=== PATIENT | male | born 1955 | race Caucasian/White ===

== ENCOUNTER 2017-02-08 14:12 | Inpatient (IN) | payer OTHER ==
--- NOTE | 2017-02-08 14:50 | Emergency Department Report ---
Entered by EDWIN MENDOZA, acting as scribe for MARISA SMALL NP. Chief Complaint: Neuro Symptoms/Deficit Stated Complaint: TINGLING LEFT HAND/FOOT/SIDE Time Seen by Provider: 02/08/17 14:25 - HPI History of Present Illness: 61 y/o male presents with tingling to the left foot, left hand and back that started 5 days ago. Pt notes Sx started after quitting smoking. Pt denies any pain. - ROS Review of Systems: +tingling left foot, left hand, back area -pain - Exam Vital Signs: Vital Signs 02/08/17 14:22 Temperature 98.4 F Pulse Rate 72 Respiratory 18 Rate Blood Pressure 142/91 O2 Sat by Pulse 99 Oximetry Physical Exam: Neuro: GGS 15, MAEW, no focal weakness MSE screening note: Focused history and physical exam performed. Due to findings the following was ordered: labs, ct ED Disposition for MSE Condition: Stable This documentation as recorded by the scribe,EDWIN MENDOZA,accurately reflects the service I personally performed and the decisions made by ,MARISA SMALL , CLERK SECRETARY.
[2017-02-08 15:06] LABS: Basophils % (Auto) 0.4 % (0.0-1.8); Eosinophils % (Auto) 0.6 % (0.0-4.3); Hematocrit 37.2 % (35.5-45.6); Hemoglobin 12.2 gm/dl (11.8-15.2); Mean Corpuscular HGB Conc 33 % (32-34); Mean Corpuscular Hemoglobin 29 pg (28-32); Mean Corpuscular Volume 89 fl (84-94); Platelet Count 291 K/mm3 (140-440); Red Blood Count 4.19 M/mm3 (3.65-5.03); Red Cell Distribution Width 12.6 % (13.2-15.2)
[2017-02-08 15:10] LABS: Alanine Aminotransferase 18 units/L (7-56); Albumin 4.4 g/dL (3.9-5); Albumin/Globulin Ratio 1.1 %; Alkaline Phosphatase 72 units/L (35-129); Anion Gap 19 mmol/L; BUN/Creatinine Ratio 28.57; Blood Urea Nitrogen 20 mg/dL (9-20); Calcium 9.5 mg/dL (8.4-10.2); Carbon Dioxide 24 mmol/L (22-30); Chloride 98.8 mmol/L (98-107); Glucose 107 mg/dL (75-100); Potassium 4.4 mmol/L (3.6-5.0); Sodium 137 mmol/L (137-145); Total Protein 8.3 g/dL (6.3-8.2)
[2017-02-08 15:15] LABS: INR 0.92 (0.87-1.13)
[2017-02-08 15:16] LABS: Partial Thromboplastin Time 27.1 Sec. (24.2-36.6)
--- NOTE | 2017-02-08 15:36 | Cat Scan Report ---
CT HEAD WITHOUT CONTRAST INDICATION: Numbness to left side of body for a couple of days. COMPARISON: None similar at this institution. FINDINGS: Noncontrast head CT demonstrates normal ventricles and age-appropriate sulci without acute or recent infarct, hemorrhage, mass effect or midline shift. Mild periventricular hypodensities and few white matter small vessel ischemic disease, including approximately 1 cm lacunar infarct on the left, image 28, series 2. No abnormal extra-axial fluid collections. Posterior fossa structures and basilar cisterns appear within normal limits. Symmetric eye globes. Clear paranasal sinuses and mastoid air cells. Intact calvarium. Normal overlying scalp soft tissues. Few missing teeth. Cervical spondylosis. CONCLUSION: No acute intracranial CT abnormality, as described. Thank you for the opportunity to participate in this patient's care.
[2017-02-08] MEDS ORDERED: ASPIRIN PO ONE (23:30)
--- NOTE | 2017-02-08 23:34 | Emergency Department Report ---
HPI - General Chief Complaint: Neuro Symptoms/Deficit Time Seen by Provider: 02/08/17 14:25 - HPI HPI: Room 5 The patient is a 61-year-old male presenting with a chief complaint of left- sided numbness. The patient states his symptoms began 4 days ago with tingling in his left hand and left foot numbness from the left axilla down his left leg. Patient also complains of feeling as though there is a tightness in his left thigh. Patient denied weakness, dysarthria, dysphasia or chest pain. The patient states outside of the numbness and tingling he has no other complaints. Location: [see above] Duration: 4 days Quality:, Tingling Severity: Moderate Modifying factors: [see above] Context: [see above] Mode of transportation: [not driving] ED Past Medical Hx - Past Medical History Previous Medical History?: No - Surgical History Past Surgical History?: No - Family History Family history: no significant - Social History Smoking Status: Former Smoker Substance Use Type: None (denies illicit drug use), Alcohol, Other ED Review of Systems ROS: Stated complaint: TINGLING LEFT HAND/FOOT/SIDE Other details as noted in HPI Comment: All other systems reviewed and negative Constitutional: denies: chills, fever Eyes: denies: eye pain, eye discharge, vision change ENT: denies: ear pain, throat pain Respiratory: denies: cough, shortness of breath, wheezing Cardiovascular: denies: chest pain, palpitations Endocrine: no symptoms reported Gastrointestinal: denies: abdominal pain, nausea, diarrhea Genitourinary: denies: urgency, dysuria Musculoskeletal: denies: back pain, joint swelling, arthralgia Skin: denies: rash, lesions Neurological: numbness, paresthesias. denies: headache, weakness Psychiatric: denies: anxiety, depression Hematological/Lymphatic: denies: easy bleeding, easy bruising Physical Exam - Physical Exam Vital Signs: Vital Signs 02/08/17 02/08/17 02/08/17 14:22 21:59 22:00 Temperature 98.4 F Pulse Rate 72 57 L 55 L Respiratory 18 12 11 L Rate Blood Pressure 142/91 O2 Sat by Pulse 99 100 Oximetry 02/08/17 22:30 Temperature Pulse Rate 56 L Respiratory 10 L Rate Blood Pressure 146/71 O2 Sat by Pulse 100 Oximetry Physical Exam: GENERAL: The patient is well-developed well-nourished male lying on stretcher not appearing to be in acute distress. [] HEENT: Normocephalic. Atraumatic. Extraocular motions are intact. Patient has moist mucous membranes. NECK: Supple. Trachea midline CHEST/LUNGS: Clear to auscultation. There is no respiratory distress noted. HEART/CARDIOVASCULAR: Regular. There is no tachycardia. There is no gallop rub or murmur. ABDOMEN: Abdomen is soft, nontender. Patient has normal bowel sounds. There is no abdominal distention. SKIN: There is no rash. There is no edema. There is no diaphoresis. NEURO: The patient is awake, alert, and oriented. The patient is cooperative. Cranial nerves II through XII grossly intact, no drift, grinding room supervisor 5+/5 bilaterally. Moves all extremities well. Patient states sensation to light touch is equal bilaterally throughout but continues complaining of left sided paresthesias. The patient has normal speech MUSCULOSKELETAL: There is no evidence of acute injury. ED Course Vital Signs 02/08/17 02/08/17 02/08/17 14:22 21:59 22:00 Temperature 98.4 F Pulse Rate 72 57 L 55 L Respiratory 18 12 11 L Rate Blood Pressure 142/91 O2 Sat by Pulse 99 100 Oximetry 02/08/17 22:30 Temperature Pulse Rate 56 L Respiratory 10 L Rate Blood Pressure 146/71 O2 Sat by Pulse 100 Oximetry ED Medical Decision Making - Lab Data Result diagrams: 02/08/17 14:32 02/08/17 14:32 Laboratory Tests 02/08/17 02/08/17 02/08/17 14:32 14:32 14:32 WBC 5.0 RBC 4.19 Hgb 12.2 Hct 37.2 MCV 89 MCH 29 MCHC 33 RDW 12.6 L Plt Count 291 Lymph % (Auto) 42.9 H Cochran % (Auto) 8.7 H Eos % (Auto) 0.6 Baso % (Auto) 0.4 Lymph # 2.2 Cochran # 0.4 Eos # 0.0 Baso # 0.0 Seg Neutrophils % 47.4 Seg Neutrophils # 2.4 PT 12.3 INR 0.92 APTT 27.1 Sodium 137 Potassium 4.4 Chloride 98.8 Carbon Dioxide 24 Anion Gap 19 BUN 20 Creatinine 0.7 L Estimated GFR > 60 BUN/Creatinine Ratio 28.57 Glucose 107 H Calcium 9.5 Total Bilirubin 0.70 AST 21 ALT 18 Alkaline Phosphatase 72 Total Protein 8.3 H Albumin 4.4 Albumin/Globulin Ratio 1.1 - EKG Data -: EKG Interpreted by Me EKG shows normal: sinus rhythm Rate: bradycardia (57 bpm) - EKG Data When compared to previous EKG there are: previous EKG unavailable Interpretation: other (no ischemic changes seen) - Radiology Data Radiology results: report reviewed (CT head), image reviewed (CT head) CT head (read by radiologist)-no acute intracranial CT abnormality - Differential Diagnosis CVA, TIA Critical care attestation.: If time is entered above; I have spent that time in minutes in the direct care of this critically ill patient, excluding procedure time. ED Disposition Clinical Impression: Left sided numbness Disposition: DC-09 OP ADMIT IP TO THIS HOSP Is pt being admited?: Yes Does the pt Need Aspirin: Yes Condition: Fair Referrals: PRIMARY CARE, [Primary Care Provider] - 3-5 Days Time of Disposition: 23:37 (hospitalist paged)
--- NOTE | 2017-02-09 01:16 | Admit Criteria Form ---
Admission Criteria Documentation: NEUROLOGY GRG Clinical Indications for Admission to Inpatient Care (Place ' X' for any and all applicable criteria): Hospital admission is needed for appropriate care of the patient because of 1 or more of the following: [ ]I. Encephalitis [ ]II. Severe CH[employer]DER infections indicated by 1 or more of the following(1)(2)(3) : [ ]a) Intracranial abscess [ ]b) Spinal abscess or myelitis [ ]c) Tuberculous or other nonbacterial, nonviral CHANNEL RE[employer]DER infection(8) [ ]III. Vasculitis and 1 or more of the following(14)(15): []a) Altered mental status that is severe or persistent or other acute neurologic change []b) Psychosis []c) Seizure [ ]IV. Status epilepticus or repetitive seizures not controlled with emergent treatment [A] (7)(8) [ ]V. Altered mental status that is severe or persistent [ ]. Transient alteration in consciousness with high-risk etiology; examples include (12)(13): [ ]a) Cardiovascular source [ ]b) Cataplexy [ ]VII. Cerebral aneurysm requiring ANY ONE of the following(14): [ ]a) IV antihypertensives or vasoactive agents [ ]b) Sedation and analgesia for suspected leak [ ]c) Need for external ventricular drainage and cerebral perfusion pressure monitoring [ ]d) Emergent evaluation to determine need for surgical clipping or endovascular coiling by interventional radiology. If surgery is required ( Also use Craniotomy, Supratentorial, for Surgery of Bleeding Intracranial Aneurysm (for bleeding aneurysm) or Craniotomy, Supratentorial (for nonbleeding aneurysm) as appropriate. [X ]VIII. New-onset severe neurologic symptom requiring inpatient care indicated by ANY ONE of the following: [ ]a) Aphasia(15) [ ]b) Weakness (grade 3 or less) [ ]c) Paralysis (eg, hemiplegia) [ ]d) Spasticity(16) [ ]e) Dystonia [ ]e) Ataxia(17) [ ]f) Amnesia(18) [ ]g) Involuntary movements(19) [ ]h) Vertigo [ ] Visual loss [X ]i) Other severe neurologic finding (eg, papilledema, mass effect on imaging, myoclonus not treatable at alternative level of care (eg, observation care) [ ]IX. Guillain-[place] syndrome(20) [ ]X. Myasthenia gravis crisis or inpatient monitoring need as indicated by 1 or more of the following(21): [ ]a) Intensive treatment (eg, course of plasmapheresis) with inadequate outpatient situation to monitor patients status [ ]b) Inadequate airway protection [ ]c) Respiratory insufficiency requiring intubation or inpatient. monitoring [ ]d) Progressive dysphagia with failure to thrive [ ]XI. Multiple sclerosis or other acute demyelinating disease requiring inpatient care as indicated by 1 or more of the following (22)(23): [ ]a) Acute severe deterioration requiring inpatient treatment (eg, IV steroids, plasmapheresis, close observation) [ ]b) Acute complication requiring inpatient care (eg, sepsis, severe decubitus, aspiration) [ ]XII.Parkinson disease requiring inpatient care (Also use Optimal Recovery Care Criteria or General Recovery Criteria as appropriate) indicated by 1 or more of the following(25): [ ]a) Infection (eg, aspiration pneumonia) not treatable at alternative level of care [ ]b Dehydration that is severe or persistent [ ]c) Life-threatening agitation or psychotic behavior not treatable on emergency, observation care, or alternative level (eg, residential) basis [ ]d) Severe medication withdrawal effects (eg, freezing, neuroleptic malignant syndrome) not responsive to emergency and observation care treatment ( as appropriate) [ ]e) Other severe manifestation not treatable at alternative level of care [ ]XII. Amyotrophic lateral sclerosis with inpatient care needs as indicated by ANY ONE of the following(26): [ ]a) Acute complications (eg, aspiration pneumonia, sepsis ) requiring inpatient care ( see other optimal Recovery Guideline as appropriate) [ ]b) Dehydration that is severe persistent AND artificial support desired [ ]c) Inadequate airway protection AND artificial support desired [ ]d) Severe ventilatory insufficiency AND artificial support desired [ ]XIII. Myasthenia gravis crisis or inpatient monitoring need as indicated by 1 or more of the following(21): [] a) Inadequate airway protection []b) Respiratory insufficiency requiring intubation or inpatient monitoring []c) Progressive dysphagia with failure to thrive []d) Intensive treatment (e.g., course of plasmapheresis) with inadequate outpatient situation to monitor patients status [ ]XIV. Multiple sclerosis or other acute demyelinating disease requiring inpatient care indicated by 1 or more of the following[C](36)(43)(44)(45)(46): []a) Acute severe deterioration requiring inpatient treatment (eg, IV steroids, plasmapheresis, close observation) []b) Acute complication requiring inpatient care (eg, sepsis, severe decubitus, aspiration) [ ]XV. Intracranial hypertension (e.g., pseudotumor cerebri) requiring inpatient care (e.g., acute visual loss, inadequate oral intake) (47)(48)(49) [ ]XVI. Parkinson disease requiring inpatient care (Also use Optimal Recovery Care Criteria or General Recovery Criteria as appropriate) indicated by 1 or more of the following(25): [] a) Infection (e.g., aspiration pneumonia) not treatable at alternative level of care []b) Volume depletion not responsive to emergency and observation care treatment (as appropriate) []c) Life-threatening agitation or psychotic behavior not treatable on emergency, observation care, or alternative level (e.g., residential) basis []d) Severe medication withdrawal effects (e.g., freezing, neuroleptic malignant syndrome) not responsive to emergency and observation care treatment (as appropriate) []e) Other severe manifestation not treatable at alternative level of care [ ]XVII. Amyotrophic lateral sclerosis with inpatient care needs as indicated by1 or more of the following(42): []a) Acute complications (eg, aspiration pneumonia, sepsis) requiring inpatient care (see other Optimal Recovery Guideline or General Recovery Guideline as appropriate) []b) Dehydration that is severe or persistent AND artificial support desired []c) Inadequate airway protection AND artificial support desired []d) Severe ventilatory insufficiency AND artificial support desired [ ]XVIII. Severe myopathy, neuropathy, or other neuromuscular disease indicated by 1 or more of the following(42)(52)(53)(54): []a ) New-onset severe diffuse weakness (eg, strength 3/5 or less) []b) Severe dysphagia []c) Dyspnea at rest or with minimal exertion (new) []d) Inadequate airway protection []e) Inadequate ventilation indicated by 1 or more of the following : i) Partial pressure of carbon dioxide greater than 44 mm Hg ( 5.9 kPa) (new) ii) Reduced peak expiratory flow rate (new) iii) Vital capacity less than 50% of predicted (less than 15 mL/kg) iv) Peak inspiratory force less negative than -30 cm H2O (- 2942 Pa) [ ]XVII.Complications of congenital or degenerative disease (eg, infection, seizures, dehydration, injury) not responsive to emergency and observation care treatment (as appropriate ) [C](16)(29)(30) [ ]XVIII.Suspected or confirmed nerve or muscle toxic injury, including ANY ONE of the following: [ ]a) Rhabdomyolysis(31) i) Acute renal failure ii) Dehydration that is severe or persistent iii) Altered mental status that is severe or persistent iv) Electrolyte abnormality that remains after emergency or observation level care ( as appropriate) [ ]b) Botulism(32) [ ]c) Other severe toxin-induced sign or symptom [ ]XIX. Neurologic trauma requiring inpatient treatment (medical) indicated by ANY ONE of the following(33)(34): [ ]a) Vital signs or neurologic signs more frequently than every 4 hours [ ]b) Hyperosmolar therapy [ ]c) Respiratory monitoring [ ]d) Intracranial pressure monitoring and treatment [ ]e) Stabilization and immobilization device placement (eg, braces, body jacket) [ ]f) Intubation & mechanical ventilation for airway protection or therapeutic hyperventilation [ ]g) Other treatment or monitoring needed that requires inpatient level of care [ ]XX.Complications of neurologic devices (eg, ventricular shunt, neurostimulator) requiring 1 or more of the following(35)(36): [ ]a) IV antibiotics with monitoring while awaiting culture results [ ]b) Monitoring for hydrocephalus [ ]XXI. Neurology condition symptom, or finding for which emergency and observation care have failed or are not considered appropriate. See General Criteria: Observation Care ISC, General Admission Criteria GRG, or Pediatric General Admission Criteria GRG guideline as appropriate. The original [facility] [employer] content created by [employer] [facility] has been revised. The portions of the content which have been revised are identified through the use of italic text or in bold, and [facility] has neither reviewed nor approved the modified material. All other unmodified content is copyright [facility] Please see references footnoted in the original [facility] edition 2016 Admission Criteria Met: Yes
[2017-02-09] MEDS ORDERED: TYLENOL PO PRN (01:50)
[2017-02-09] MEDS ORDERED: ZOFRAN IV PRN (01:51)
[2017-02-09] MEDS: NACL 0.9% 1000 ML 1,000 ML IV SCH ×2 (03:21→22:23)
[2017-02-09 05:49] LABS: Creatine Kinase MB 2.7 ng/mL (0.0-4.0)
[2017-02-09 05:53] LABS: Creatine Kinase 175 units/L (55-170)
--- NOTE | 2017-02-09 08:13 | History and Physical Report ---
CHIEF COMPLAINT: Numbness and tingling on the left side of the body. HISTORY OF PRESENT ILLNESS: The patient is a 61-year-old male who said he has been having numbness and tingling on the left side of the body going on for 4 days. The patient denied any weakness. Denied any history of speech impairment, dizziness or visual impairment. He has the ability to walk around without any weakness. There was also no history of chest pain or shortness of breath. The patient presented to the Emergency Room. PAST MEDICAL HISTORY: Unremarkable. PAST SURGICAL HISTORY: Unremarkable. FAMILY HISTORY: Noncontributory. SOCIAL HISTORY: The patient said he smoked cigarettes, but stopped, as soon as his symptoms started. The patient drinks alcohol occasionally and does not use illicit drugs. MEDICATIONS: The patient is not on any medication. ALLERGIES: There are no known drug allergies. REVIEW OF SYSTEMS: CONSTITUTIONAL: There is no fever, no chills, no diaphoresis. HEENT: There is no headache or sore throat. CARDIOVASCULAR SYSTEM: There is no chest pain, orthopnea. RESPIRATORY: There is no shortness of breath or cough. GASTROINTESTINAL: There is no nausea, no vomiting, no abdominal pain, diarrhea or constipation. NEUROLOGICAL: Numbness and tingling on the left side of the body noted. No dizziness. No altered mental status. MUSCULOSKELETAL: There is no joint pain or swelling. DERMATOLOGICAL: There is no skin rash or itching. GENITOURINARY: There is no dysuria, hematuria or flank pain. Rest of system review is normal. PHYSICAL EXAMINATION: GENERAL: At the time of exam, the patient was found to be alert, oriented x 3 and not in acute distress. VITAL SIGNS: Shows temperature of 98.3 degrees Fahrenheit, pulse of 60, respirations 16, blood pressure of 128/80, O2 sat of 100% on room air. HEENT: Showed pupils to be equal, round, reactive to light and accommodating. Extraocular muscles are intact. NECK: Supple with no JVD or carotid bruit. CARDIOVASCULAR: Show first and second heart sounds with no gallops or murmur. RESPIRATORY: Show good air entry on both sides of the lung with no abnormal breath sounds. GASTROINTESTINAL: Show abdomen to be full, soft, nontender with no organomegaly or rigidity. NEUROLOGICAL: Shows no focal deficits. MUSCULOSKELETAL: Show no joint swelling or tenderness. DERMATOLOGIC: Show no skin rash. GENITOURINARY: Showing no costovertebral angle tenderness. PERTINENT LABORATORY AND IMAGING STUDIES: The patient had a CT of the head done that shows no intracranial abnormality. LABORATORY RESULTS: CBC was unremarkable except for CBC, differential that shows high lymphocyte count of 42.9% with high monocyte count of 8.7%. Coagulation studies came back unremarkable. Chemistry came back unremarkable. Total protein of 8.3. DIAGNOSIS: Numbness of the left side of the body. PLAN: The patient will be admitted to medical floor and will have MRI of the brain without contrast done this morning. The patient will also have echocardiogram done this morning and will have cardiac enzymes involving troponin and total CK q. 6 hours x 2 more levels. The patient will have bilateral carotid Doppler also done this morning and will be on Tylenol 650 mg by mouth daily for fever and headache. The patient will be on IV Zofran 4 mg every 8 hours for nausea and vomiting and will be on aspirin 325 mg by mouth daily and food. The patient will have a Neurology consult when available. Currently, there is no Neurology coverage. JOB# [id number] OCN/NTS
[2017-02-09] MEDS: ASPIRIN PR SCH (12:19)
--- NOTE | 2017-02-09 12:32 | Magnetic Resonance Report ---
MRI OF THE BRAIN WITHOUT CONTRAST: HISTORY: Left sided body numbness, CVA PROCEDURE: Multiplanar, multisequence MR imaging of the brain without IV contrast was performed. FINDINGS: The CT of brain without contrast performed 02/08/17 was reviewed. MR demonstrates a 1 cm focus of diffusion restriction in the right side of the luis on image 13. No other areas of diffusion restriction are identified. Chronic 1 cm infarct in the left perdomo radiata and chronic linear infarct in the right subinsular cortex are again noted and unchanged. No large chronic infarct. The remaining brain parenchyma signal intensity is within normal limits. The coles-white interface is well defined. No evidence for mass or hemorrhage. The midline structures are central. The basal cisterns are patent. Normal ventricular size. The orbital cavities and sella turcica demonstrate no abnormality. The visualized paranasal sinuses and mastoid air cells are well aerated. IMPRESSION: 1 cm subacute ischemic infarct in the right luis. Chronic focal infarcts in the left perdomo radiata and right subinsular cortex.
--- NOTE | 2017-02-09 12:34 | Event Note ---
Date: 02/09/17 Patient seen and examined medical records reviewed Admitted this morning with numbness, neurology workup is in progress Agree with the current management Disposition; follow workup, if negative and patient is stable can be discharged home tomorrow
[2017-02-09 14:28] LABS: Creatine Kinase MB 2.4 ng/mL (0.0-4.0)
[2017-02-09 14:29] LABS: Creatine Kinase 164 units/L (55-170)
[2017-02-10 08:56] VITALS: BP 112/83
[2017-02-10] MEDS: ASPIRIN PR SCH (09:37)
--- NOTE | 2017-02-10 11:26 | Discharge Summary ---
Providers - Providers Date of Admission: 02/09/17 01:43 Date of discharge: 02/10/17 Attending physician: SANDRA MIJARES 02/09/17 08:44 Physical Therapy Evaluation and Treat [CONS] Routine Comment: Reason For Exam: cva 02/09/17 08:45 Occupational Therapy Evaluate and Treat [CONS] Routine Comment: Reason For Exam: cva Primary care physician: FIRE LIEUTENANT MARINE Hospitalization Reason for admission: Tingling and numbness of the left side of the body Condition: Fair Pertinent studies: CT head without contrast; no acute intracranial abnormality noted MRI brain; 1 cm subacute ischemic infarct in the right luis chronic focal infarcts in the left perdomo radiate and right subinsular cortex Carotid Doppler; no hemodynamically significant stenosis[less than 50% diameter reduction] Echocardiogram; left ventricle ejection fraction 55-60% Hospital course: Final diagnosis; Acute CVA Left-sided numbness Dyslipidemia Ongoing tobacco use Brief history and hospital course; 61-year-old male patient with no significant past medical history was admitted through emergency room with left-sided numbness and tingling of 4 days' duration Not a candidate for therapy Patient was initially evaluated in the hospital had extensive neuro workup as mentioned above CT scan negative however MRI is positive for small infarct Patient was placed on aspirin and statin, received physical therapy occupational therapy, did not have any therapy needs Symptoms significantly improved, the day of discharge patient is comfortable and ambulatory tolerating orally she No new complaints, vital signs are stable, [id number] evaluation physical examination done by me prior to discharge did not show any new changes Hemodynamically and clinically stable for discharge and follow up with primary care physician within one week Smoking cessation counseling done patient strongly advised nicotine patch Disposition: DC-01 TO HOME OR SELFCARE Time spent for discharge: 31 min Core Measure Documentation - Palliative Care Palliative Care/ Comfort Measures: Not Applicable - Core Measures Any of the following diagnoses?: stroke - Stroke Discharge Requirements Statin for LDL = or >70 mg/dl on DC: Yes Anticoag for atrial fib/atrial flutter: Not Applicable (no afib/flutter) Antithrombotic for ischemic stroke: Yes Exam - Constitutional Vitals: Temp Pulse Resp BP Pulse Ox 98.4 F 72 16 112/83 98 02/10/17 08:55 02/10/17 10:51 02/10/17 10:51 02/10/17 08:55 02/10/17 10:51 General appearance: Present: no acute distress, well-nourished - EENT Eyes: Present: PERRL, EOM intact - Neck Neck: Present: supple, normal ROM - Respiratory Respiratory effort: normal Respiratory: negative: rales, rhonchi, wheezing - Cardiovascular Rhythm: regular Heart Sounds: Present: S1 & S2 - Extremities Extremities: no ischemia, No edema - Abdominal General gastrointestinal: Present: soft, non-tender, non-distended, normal bowel sounds - Integumentary Integumentary: Present: clear, warm - Musculoskeletal Musculoskeletal: strength equal bilaterally - Psychiatric Psychiatric: appropriate mood/affect, cooperative - Neurologic Neurologic: CNII-XII intact, moves all extremities Plan Activity: no restrictions Diet: other (cardiac Diet) Special Instructions: smoking cessation Additional Instructions: strongly advised to quit tobacco use Follow up with: PRIMARY CARE,MD [Primary Care Provider] - 3-5 Days JAMIE KOVACS MD [Staff Physician] - 7 Days Prescriptions: Aspirin EC [Aspirin Enteric Coated TAB] 325 mg PO QDAY #30 tablet. AtorvaSTATin [Lipitor] 40 mg PO QHS #30 tablet Nicotine [Habitrol] 14 mg TD DAILY #30 patch
--- NOTE | 2017-02-16 10:10 | Vascular Lab Report ---
CAROTID DUPLEX STUDY: RIGHT PSVEDV CCA PROX:[id number] CCA DIST: 6513 ICA PROX: 5621 ICA MID: 8235 ICA DIST: 7027 ECA: 84 VERT: 34 12 LEFT PSVEDV CCA PROX: [id number] CCA DIST: 7921 ICA PROX: 7020 ICA MID: 7834 ICA DIST: 6228 ECA: 84 VERT: 13 REASON FOR EXAM: Left-sided numbness. COMMENTS ON THE RIGHT: Doppler frequency analysis is consistent with 16 to 49 percent diameter reduction of the internal carotid artery. Minimal amount of plaque is seen. The common carotid artery is patent. The external carotid artery is patent. The vertebral artery has antegrade flow. COMMENTS ON THE LEFT: Doppler frequency analysis is consistent with 16 to 49 percent diameter reduction of the internal carotid artery. Minimal amount of plaque is seen. The common carotid artery is patent. The external carotid artery is patent. The vertebral artery has antegrade flow. IMPRESSION: Less than 50% diameter reduction in the internal carotid arteries bilaterally. Consider repeat carotid artery duplex in 12 months.
== END 2017-02-10 12:44 | disposition home or self-care (01) | DRG 93 ==
LOC: ED 14:12 → 4A 02-09 01:43
PROVIDERS: ADMIT Internal Medicine; ATTEND Internal Medicine
DX: R20.0 Anesthesia of skin (principal); Z87.891 Personal history of nicotine dependence
CPT/HCPCS: 36415; 70450; 70551; 80053; 80061; 82550; 82553; 84484; 85025; 85610; 85730; 93005; 93010; 93306; 93880; 99406; J7030